=== PATIENT | male | born 1945 | race Caucasian/White ===

== ENCOUNTER → 2018-08-10 | Outpatient (CLI) | payer MEDICARE, OTHER ==
--- NOTE | 2018-08-10 09:26 | Diagnostic Imaging Report ---
INDICATION: Pre-MRI. IMPRESSION: No radiopaque orbital foreign body is detected. Dictated by: Dictated on workstation # [id number]
== END ==
LOC: RAD 09:06
PROVIDERS: ATTEND Orthopaedic Surgery
DX: H05.53 Retained (old) foreign body following penetrating wound of bilateral orbits (principal)
CPT/HCPCS: 70200

== ENCOUNTER → 2018-08-10 | Outpatient (CLI) | payer MEDICARE, OTHER ==
--- NOTE | 2018-08-10 10:33 | Diagnostic Imaging Report ---
EXAMINATION: Magnetic resonance imaging of the right knee without intravenous contrast DATE: August 10, 2018. COMPARISON: None. INDICATION: 73-year-old male, right knee pain. TECHNIQUE: Multiplanar, multisequence non contrast enhanced MR imaging was accomplished. FINDINGS: MENISCI: There is signal in the body and posterior horn of the medial meniscus not meeting strict MRI criteria for diagnosis of tear. There is a longitudinal horizontal type tear involving the anterior horn, body, and posterior horn of the lateral meniscus. There is additional small oblique tearing of the body of the lateral meniscus. LIGAMENTS AND TENDONS: The anterior and posterior cruciate ligaments are intact. The medial collateral ligament is intact. The iliotibial band, mid third lateral capsular ligament, fibular collateral ligament, biceps femoris tendon, and conjoined tendon are intact. The quadriceps tendon and patella ligament are intact. JOINT: There is approximately 25% thickness cartilage thinning of the median patellar ridge with superficial cartilage irregularity and probable cartilage flap measuring approximately 3 mm in transverse dimension. There is mild underlying degenerative related subchondral edema. There is mild irregularity of the cartilage of the femoral trochlea. The medial and lateral compartment cartilage is grossly intact. There is a small knee joint effusion. There is no identified intra-articular body or prominent synovitis. BONE: There is edema like signal near the tibial attachment of the anterior cruciate ligament, likely mechanically related. There is no acute fracture, bone contusion, or evidence of osteonecrosis. BURSAE AND SOFT TISSUES: There is a Hall's cyst measuring approximately 3.2 x 2.7 x 5.6 cm in size. There is nonspecific anterior subcutaneous edema. There is fairly prominent soft tissue edema laterally deep to the iliotibial band. There is nonspecific edema within Hoffa's fat. IMPRESSION: 1. Longitudinal horizontal type tear involving the anterior horn, body, and posterior horn of the lateral meniscus with additional oblique type tearing of the body of the lateral meniscus. 2. Grossly intact medial meniscus. 3. Intact anterior and posterior cruciate ligaments. 4. Mild patellofemoral compartment osteoarthritis. Small knee joint effusion without intra-articular body or prominent synovitis. 5. No acute fracture or bone contusion. 6. Hall's cyst. Dictated by: Dictated on workstation # [id number]
== END ==
LOC: RAD 09:03
PROVIDERS: ATTEND Nurse Practitioner
DX: S83.281A Other tear of lateral meniscus, current injury, right knee, initial encounter (principal); M71.21 Synovial cyst of popliteal space [Baker], right knee; M17.11 Unilateral primary osteoarthritis, right knee
CPT/HCPCS: 73721